=== PATIENT | female | born 1965 | race Caucasian/White ===

== ENCOUNTER 2021-07-15 12:24 | Emergency (ER) | payer BC ==
[~2021-07-15] VITALS: Ht 165.1 cm; Wt 64.4 kg
--- NOTE | 2021-07-15 12:24 | NUR ---
1221--PT NOHEMI VIA GURNEY TO BED 08.
[2021-07-15 12:27] VITALS: BP 141/75
[2021-07-15] MEDS ORDERED: MORPHINE SULFATE 4 MG/ML SYR IM ONE (12:50)
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
[2021-07-15] MEDS ORDERED: DIAZ5TAB7 PO (13:22)
[2021-07-15] MEDS ORDERED: BACITRACIN OINT 500 UNITS/GM PKT TP ONE ×2 (13:35→13:36)
--- NOTE | 2021-07-15 13:40 | NUR ---
WOUND CLEANED WITH NORMAL SALINE AND APPLIED BACITRACIN TO WOUND
[2021-07-15 13:42] VITALS: BP 126/61
[2021-07-15] MEDS ORDERED: LORazepam 1 MG TAB ONE (13:49)
[2021-07-15] MEDS ORDERED: LORazepam 1 MG TAB PO ONE (13:50)
--- NOTE | 2021-07-15 14:18 | NUR ---
Patient discharged with v/s stable. Written and verbal after care instructions ABOUT [employer] given and explained. Patient alert, oriented and verbalized understanding of instructions. Ambulatory with steady gait. All questions addressed prior to discharge. ID band removed. Patient advised to follow up with PMD. Rx of DIAZEPAM given. Patient educated on indication of medication including possible reaction and side effects. Opportunity to ask questions provided and answered.
== END 2021-07-15 14:18 | disposition home or self-care (01) ==
LOC: MED 12:24
DX: S16.1XXA Strain of muscle, fascia and tendon at neck level, initial encounter (principal); S00.83XA Contusion of other part of head, initial encounter; Z91.040 Latex allergy status; Z88.8 Allergy status to other drugs, medicaments and biological substances; Z79.899 Other long term (current) drug therapy; V89.2XXA Person injured in unspecified motor-vehicle accident, traffic, initial encounter; Y93.89 Activity, other specified; Y92.89 Other specified places as the place of occurrence of the external cause; Y99.8 Other external cause status
CPT/HCPCS: 71045; 96372; 99283; J2270